=== PATIENT | female | born 1970 | race Caucasian/White ===

== ENCOUNTER 2017-04-26 18:38 | Emergency (ER) | payer OTHER ==
[~2017-04-26] VITALS: Ht 162.6 cm; Wt 122.5 kg
[2017-04-26 18:41] VITALS: BP_SYST 144
[2017-04-26] MEDS ORDERED: HYDROcodone/ACETAMIN 5-325 MG TAB (NORCO/ VICODIN) PO ONE (19:45)
[2017-04-26 20:18] VITALS: BP_SYST 131
== END 2017-04-26 20:18 | disposition home or self-care (01) ==
LOC: SED 18:38
DX: S16.1XXA Strain of muscle, fascia and tendon at neck level, initial encounter (principal); S39.012A Strain of muscle, fascia and tendon of lower back, initial encounter; M54.6 Pain in thoracic spine; V49.9XXA Car occupant (driver) (passenger) injured in unspecified traffic accident, initial encounter; Y93.89 Activity, other specified; Y92.488 Other paved roadways as the place of occurrence of the external cause; Y99.8 Other external cause status
CPT/HCPCS: 81025; 99283

== ENCOUNTER 2017-05-09 17:32 | Emergency (ER) | payer OTHER ==
[~2017-05-09] VITALS: Ht 165.1 cm; Wt 122.5 kg
[2017-05-09 17:47] VITALS: BP_SYST 160
[2017-05-09] MEDS ORDERED: DIPHENHYDRAMINE INJ 50 MG/ML VIAL IM ONE (18:15)
[2017-05-09] MEDS ORDERED: MORPHINE SULFATE 10 MG/ML VIAL IM ONE (18:15)
[2017-05-09 19:25] VITALS: BP_SYST 145
== END 2017-05-09 19:25 | disposition home or self-care (01) ==
LOC: SED 17:32
DX: S16.1XXA Strain of muscle, fascia and tendon at neck level, initial encounter (principal); S39.012A Strain of muscle, fascia and tendon of lower back, initial encounter; R51 Headache; V49.49XA Driver injured in collision with other motor vehicles in traffic accident, initial encounter; Y93.89 Activity, other specified; Y92.89 Other specified places as the place of occurrence of the external cause; Y99.8 Other external cause status
CPT/HCPCS: 70450; 72125; 72131; 81025; 96372; 99284; J1200; J2270

== ENCOUNTER 2020-11-05 17:40 | Emergency (ER) | payer OTHER ==
[~2020-11-05] VITALS: Ht 160 cm; Wt 120.7 kg
[2020-11-05 17:40] VITALS: BP_SYST 189
[2020-11-05] MEDS ORDERED: LORazepam 1 MG TABLET PO ONE (18:30)
[2020-11-05 18:59] LABS: BASOPHILS % (AUTO) 0.4 % (0.0-2.0); EOSINOPHILS # (AUTO) 0.1 K/uL (0.0-0.4); EOSINOPHILS % (AUTO) 1.2 % (0.0-4.0); HEMATOCRIT 43.2 % (36-48); HEMOGLOBIN 14.7 g/dL (12.0-16.0); LYMPHOCYTES # (AUTO) 1.6 K/uL (1.0-5.5); LYMPHOCYTES % (AUTO) 19.6 % (20.5-51.5); MEAN CORPUSCULAR HEMOGLOBIN 30 pg (27-31); MEAN CORPUSCULAR HGB CONC 34 % (32-36); MEAN CORPUSCULAR VOLUME 87 fL (79.0-98.0); MONOCYTES # (AUTO) 0.6 K/uL (0.0-1.0); MONOCYTES % (AUTO) 8.1 % (1.7-9.3); NEUTROPHILS # (AUTO) 5.6 K/uL (1.8-7.7); NEUTROPHILS % (AUTO) 70.7 % (40.0-70.0); PLATELET COUNT (AUTO) 199 K/uL (130-430); RED BLOOD CELL COUNT(AUTO) 4.97 MIL/uL (4.2-6.2)
[2020-11-05 19:13] LABS: ANION GAP 6 (5-15); CALCIUM 8.8 mg/dL (8.4-11.0); CHLORIDE 102 mmol/L (98-107); CREATININE 0.86 mg/dL (0.55-1.30); GLUCOSE 110 mg/dL (70-99); POTASSIUM 3.8 mmol/L (3.5-5.1); SODIUM SERUM 138 mmol/L (136-145); UREA NITROGEN, BLOOD 15 mg/dL (8-21)
[2020-11-05 19:28] LABS: ALANINE AMINOTRANSFERASE 27 U/L (12-78); ALBUMIN 3.9 g/dL (3.4-4.8); ASPARTATE AMINOTRANSFERASE 21 U/L (10-37); FREE T4 (FREE THYROXINE) 1.1 ng/dl (0.8-1.5); LIPASE 92 U/L (73-393); THYROID STIMULATING HORMONE 1.35 uIu/mL (0.36-3.74); TOTAL BILIRUBIN 0.6 mg/dL (0.0-1.0)
[2020-11-05 19:30] LABS: GFR AFRICAN AMERICAN 90 mL/min (>90)
[2020-11-05] MEDS ORDERED: LORA-258 PO (19:45)
[2020-11-05 20:00] VITALS: BP_SYST 134
== END 2020-11-05 20:00 | disposition home or self-care (01) ==
LOC: SED 17:40
DX: R00.2 Palpitations (principal)
CPT/HCPCS: 36415; 71045; 80053; 83690-TC; 84439; 84443-TC; 84484; 85025; 85379; 93005; 99285

== ENCOUNTER 2023-02-16 07:40 | Day surgery (SDC) | payer OTHER ==
[~2023-02-16] VITALS: Ht 160 cm; Wt 127.0 kg
[~2023-02-16 07:40] MED LIST: CEFAZOLIN SOD 2 GM in D5W 50 ML IV ONE; LORA-258 PO
[2023-02-16] MEDS ORDERED: PROPOFOL 200MG/ 20ML VIAL (DIPRIVAN) IV ONE (08:36)
[2023-02-16] MEDS ORDERED: LIDOCAINE/EPI MPF 1%1:200000 30 ML VIAL ONE (08:36)
[2023-02-16] MEDS ORDERED: WATER FOR IRRIGATION,STERILE 1,000 ML IRRIG.SOLN IR ONE (08:36)
[2023-02-16] MEDS ORDERED: MIDAZOLAM HCL 2 MG/2 ML VIAL (VERSED) ONE (08:36)
[2023-02-16] MEDS ORDERED: NS IRRIG SOLN 1000 ML IR ONE (08:36)
[2023-02-16] MEDS ORDERED: BUPIVACAINE /PF 0.25% 30 ML VIAL INJ ONE (08:36)
[2023-02-16] MEDS ORDERED: LR 1,000 ML IV.SOLN IV ONE (08:36)
[2023-02-16] MEDS ORDERED: IBUPROFEN 600 MG TABLET PO ONE (09:15)
[2023-02-16] MEDS ORDERED: METOCLOPRAMIDE HCL 10 MG/2 ML VIAL IVP PRN (09:15)
[2023-02-16] MEDS ORDERED: KETOROLAC TROMETHAMINE 30 MG VIAL IVP PRN (09:15)
[2023-02-16] MEDS ORDERED: ONDANSETRON HCL 4 MG/2 ML VIAL IVP PRN (09:15)
[2023-02-16 11:26] VITALS: BP_SYST 138
== END 2023-02-16 10:35 | disposition home or self-care (01) ==
LOC: SDS 07:40 → SMU 07:40 → SDS 10:35
PROVIDERS: ATTEND Surgery
DX: R22.2 Localized swelling, mass and lump, trunk (principal); D76.3 Other histiocytosis syndromes; L02.213 Cutaneous abscess of chest wall
CPT/HCPCS: 87081; 93005; 21555; 88304; J3490; J0690; J3465; J2704; J7060; J7120